=== PATIENT | female | born 1970 | race Caucasian/White ===

== ENCOUNTER → 2016-11-14 | Outpatient (CLI) | payer BC ==
[~2016-11-14] MED LIST: ALBUTEROL S0.4 MG/ML; AMLOPIDINE PO; ATIVAN 0.50.5 MG/TAB PO; AUGMENTIN 500 M1 TAB PO; HCTZ 25MG TAB25 MG PO; HCTZ 25MG25 MG PO; METFORMIN500 MG PO; PRILOSEC20 M1 PO; PROVENTIL0.09 MG/A1 IH; SPRINTEC 35 MCG1 TAB PO; TOPROL XL50 MG PO; ZYRTEC 10MG10 MG PO
[2016-11-14 11:28] LABS: CREATININE, serum 0.55 mg/dL (0.52-1.25)
== END ==
LOC: COL.LAB 10:55
PROVIDERS: Psychiatry & Neurology Neurology
DX: M43.17 Spondylolisthesis, lumbosacral region (principal)

== ENCOUNTER → 2017-08-20 | Outpatient (CLI) | payer BC | LOC: COL.RAD 08:13 | DX: R10.13 Epigastric pain (principal) | CPT/HCPCS: A9541 ==

== ENCOUNTER 2019-04-30 05:29 | Day surgery (SDC) | payer BC ==
[2019-04-30] VITALS (12 sets, daily range): BP systolic 117–146; BP diastolic 69–100; PULSE 67–93; TEMP 97.5–98.6
[~2019-04-30] VITALS: Ht 170.2 cm; Wt 127.9 kg
[2019-04-30] MEDS ORDERED: LOPRESSOR 550 MG/TAB PO (06:00)
[2019-04-30] MEDS ORDERED: GLUCOPHAGE500 MG/TAB PO (06:01)
[2019-04-30] MEDS ORDERED: HCTZ 25MG TAB25 MG PO (06:01)
[2019-04-30] MEDS ORDERED: GLUCOTROL10 MG PO (06:02)
[2019-04-30] MEDS ORDERED: PRILOSEC 20MG20 MG PO (06:02)
[2019-04-30] MEDS ORDERED: ZYRTEC5 MG PO (06:03)
[2019-04-30] MEDS ORDERED: NORVASC 5MG5 MG/TAB PO (06:03)
[2019-04-30] MEDS ORDERED: OZEMPIC0.25 MG/0. SQ (06:03)
[2019-04-30] MEDS ORDERED: ATIVAN 0.50.5 MG/TAB PO (06:04)
[2019-04-30] MEDS ORDERED: FLEXERIL5 MG PO (06:04)
[2019-04-30] MEDS ORDERED: PROVENTIL0.09 MG/A1 IH (06:05)
[2019-04-30] MEDS ORDERED: BENADRYL25 M2 PO (06:05)
[2019-04-30] MEDS ORDERED: MOTRIN 800800 MG/TAB PO (07:10)
[2019-04-30] MEDS ORDERED: PERCOCET 325 MG1 TA2 PO (07:11)
--- NOTE | 2019-04-30 07:44 | NUR ---
Patient belongings bag x1 taken to PACU with patient label on it at this time.
--- NOTE | 2019-04-30 10:10 | NUR ---
Patient to room 220 via bed from PACU. Patient sleepy, but aroses to name and answers questions appropriately. O2 at 3L per NC. IV to right wrist with LR infusing per orders. 4 bandaids to abdomen CDI. SCDs on. Recovery VS started. Plan of care reviewed.
--- NOTE | 2019-04-30 12:15 | NUR ---
Patient takes blood sugar with own glucometer. Blood sugar is 178.
--- NOTE | 2019-04-30 17:55 | NUR ---
Patient takes blood sugar with her own glucometer. Blood sugar is 174.
[2019-05-01 03:55] VITALS: BP 132/71; PULSE 68; TEMP 98.2
[2019-05-01 08:00] VITALS: BP 136/84; PULSE 76; TEMP 98
--- NOTE | 2019-05-01 08:00 | NUR ---
0800-Patient assessment complete. Patient denies need for pain medications rates 2/10 in abomen. Robotic sites x4 covered with bandaid C/D/I. Assessment complete. reporets + flatus. Voiding without difficulty. Vaginal bleeding scant. Updated on plan of care.
--- NOTE | 2019-05-01 09:30 | NUR ---
MD ROUNDS AND GIVES DISCHARGE INSTRUCTIONS TO PATIENT.
--- NOTE | 2019-05-01 10:50 | NUR ---
1050-REVIEWED DISCHARGE INSTRUCTIONS AND FOLLOW UP APPOINTMENTS WITH PATIENT. PATIENT DENIES QUESTIONS. 1110-PATIENT AMBULATORY OFF UNIT WITH SIGNIFICANT OTHER.
== END 2019-05-01 11:10 | disposition home or self-care (01) ==
LOC: SDCO 05:29 → OB 10:10 → SDCO 05-01 11:10 → OB 05-01 11:10
DX: N93.8 Other specified abnormal uterine and vaginal bleeding (principal); I73.9 Peripheral vascular disease, unspecified; E11.9 Type 2 diabetes mellitus without complications; K21.9 Gastro-esophageal reflux disease without esophagitis; E28.2 Polycystic ovarian syndrome; E66.9 Obesity, unspecified; Z87.891 Personal history of nicotine dependence; J43.9 Emphysema, unspecified; G47.33 Obstructive sleep apnea (adult) (pediatric); D64.9 Anemia, unspecified; Z68.41 Body mass index [BMI] 40.0-44.9, adult; Z88.1 Allergy status to other antibiotic agents; Z88.8 Allergy status to other drugs, medicaments and biological substances; Z88.5 Allergy status to narcotic agent; Z79.52 Long term (current) use of systemic steroids; Z82.49 Family history of ischemic heart disease and other diseases of the circulatory system; Z80.3 Family history of malignant neoplasm of breast; Z80.49 Family history of malignant neoplasm of other genital organs; Z90.49 Acquired absence of other specified parts of digestive tract
CPT/HCPCS: OP; A4314; J1100; J1815; J1885; J2405; J2704; J2710; J3010; J7120

== ENCOUNTER → 2023-07-17 | Outpatient (CLI) | payer BC ==
[~2023-07-17] MED LIST changes: +BENADRYL25 M2 PO; +FLEXERIL5 MG PO; +GLUCOPHAGE500 MG/TAB PO; +GLUCOTROL10 MG PO; +LOPRESSOR 550 MG/TAB PO; +MOTRIN 800800 MG/TAB PO; +NORVASC 5MG5 MG/TAB PO; +OZEMPIC0.25 MG/0. SQ; +PERCOCET 325 MG1 TA2 PO; +PRILOSEC 20MG20 MG PO; +ZYRTEC5 MG PO
== END ==
LOC: MC.RAD 07:19
DX: Z12.31 Encounter for screening mammogram for malignant neoplasm of breast (principal)